=== PATIENT | male | born 1990 | race Caucasian/White ===

== ENCOUNTER 2016-11-28 23:38 | Emergency (ER) | payer OTHER ==
[2016-11-29 00:18] VITALS: BP 123/81; PULSE 89; RESP 16; TEMP 97.9; O2SAT 99
--- NOTE | 2016-11-29 00:21 | ED PDOC ---
HPI: Psych/Substance Abuse Time Seen by Provider: 11/29/16 00:20 Chief Complaint (Nursing): Alcohol Ingestion Chief Complaint (Provider): ALCOHOL INTOXICATION History Per: Patient (25 Y/O MALE BROUGHT TO ED BY [facility] FOR EVALUATION OF ALTERED MENTATION. PATIENT ADMITS DRINKING ETOH. WAS NOTED SLEEPING ON FLOOR. DENIES ANY OTHER COMPLAINTS.) Past Medical History Reviewed: Historical Data, Nursing Documentation, Vital Signs Vital Signs: Last Vital Signs Temp 97.9 F 11/29/16 00:16 Pulse 89 11/29/16 00:16 Resp 16 11/29/16 00:16 BP 123/81 11/29/16 00:16 Pulse Ox 99 11/29/16 00:16 - Family History Family History: States: Unknown Family Hx - Immunization History Hx Tetanus Toxoid Vaccination: No Hx Influenza Vaccination: No Hx Pneumococcal Vaccination: No - Allergies Allergies/Adverse Reactions: Allergies Allergy/AdvReac Type Severity Reaction Status Date / Time No Known Allergies Allergy Unverified 10/20/15 01:01 Review of Systems ROS Statement: Except As Marked, All Systems Reviewed And Found Negative Physical Exam - Reviewed Nursing Documentation Reviewed: Yes Vital Signs Reviewed: Yes - Physical Exam Appears: Positive for: Well, Non-toxic, No Acute Distress Head Exam: Positive for: ATRAUMATIC, NORMAL INSPECTION, NORMOCEPHALIC Skin: Positive for: Normal Color, Warm, DRY Eye Exam: Positive for: EOMI, Normal appearance, PERRL ENT: Positive for: Normal ENT Inspection Neck: Positive for: Normal, Painless ROM Cardiovascular/Chest: Positive for: Regular Rate, Rhythm Respiratory: Positive for: CNT, Normal Breath Sounds Gastrointestinal/Abdominal: Positive for: Normal Exam, Bowel Sounds, Soft Back: Positive for: Normal Inspection Extremity: Positive for: Normal ROM Neurologic/Psych: Positive for: Alert, Oriented - ECG O2 Sat by Pulse Oximetry: 99 - Progress ED Course And Treament: PATIENT WITH STEADY GAIT IN ED. FRIEND IN ED TO TAKE HIM HOME. Disposition - Clinical Impression Clinical Impression: Alcohol ingestion - Patient ED Disposition Is Patient to be Admitted: No - Disposition Disposition: Routine/Home Disposition Time: 00:40 Condition: FAIR Instructions: Alcohol Intoxication (DC) Forms: frestyl (Irish)
== END 2016-11-29 01:15 | disposition home or self-care (01) ==
LOC: H.ER 23:38
DX: F10.129 Alcohol abuse with intoxication, unspecified (principal)